=== PATIENT | female | born 1945 | race Caucasian/White ===

== ENCOUNTER 2016-05-18 12:37 | Emergency (ER) | payer MEDICARE, OTHER ==
[~2016-05-18] VITALS: Ht 157.5 cm; Wt 54.7 kg
[~2016-05-18 12:37] MED LIST: AMIT25TA20 PO; ESTR.3 PO; LYRI50CA2 PO; PERC5TAB12 PO; PREG75 PO; VAGI10TA VA; XANA0.5T PO
[2016-05-18] MEDS ORDERED: ASPIRIN 81 MG CHEW TAB PO ONE (13:15)
[2016-05-18] MEDS ORDERED: SODIUM CHLORIDE 0.9% FLUSH 5 ML FLUSH IVF PRN (13:15)
[2016-05-18 13:20] VITALS: RESP 16; O2SAT 98
--- NOTE | 2016-05-18 13:24 | PD ---
HPI Chief Complaint: Cardiac Complaint Time Seen by Provider: 12:59 Travel History International Travel<30 days: No Contact w/Intl Traveler<30days: No History of Present Illness HPI This is a 71 Year-old female who presents to the emergency department with upper back pain that's been going on for weeks, intermittent, worse with movement and laying flat, improved with sitting up. She follows with Dr. Cox and saw him a week ago regarding her pain because intermittently it goes to her right chest. He recommended a stress test and an echo. They're scheduled for next week. Today one hour prior to arrival in the emergency department the patient develops severe right sided back pain and heaviness in her chest while she was shopping. This is never happened to her before. She denies any associated shortness of breath, nausea or diaphoresis. It is since resolved but she decided to come to the emergency department to be evaluated. PFSH Past Medical History Cancer: No Cardiovascular Problems: Yes (PVC'S) Chest Pain: No Diabetes: No Diminished Hearing: No Gastrointestinal Disorders: No Glaucoma: No Hepatitis: No Hiatal Hernia: No Hypertension: Yes Integumentary: No Immunizations Current: Yes Thyroid Disease: No Past Surgical History Appendectomy: Yes Hysterectomy: Yes Thoracic Surgery: No Social History Alcohol Use: Yes (SOCIAL) Tobacco Use: No Substance Use: No Allergies-Medications (Allergen,Severity, Reaction): Coded Allergies: Latex (Verified Allergy, Severe, SKIN IRRITATION, 05/18/16) Penicillin (Verified Allergy, Severe, Rash, 05/18/16) Reported Meds & Prescriptions Reported Meds & Active Scripts Active Reported Premarin (Estrogens Conjugated) 0.3 Mg Tab 0.3 Mg PO DAILY Amitriptyline (Amitriptyline HCl) 50 Mg Tab 50 Mg PO HS Lyrica (Pregabalin) 75 Mg Cap 75 Mg PO HS Vagifem Vaginal (Estradiol Vaginal) 10 Mcg Vagtab 10 Mcg VAGINAL 2XWEEK Review of Systems Except as stated in HPI: all other systems reviewed are Neg Physical Exam Narrative GENERAL:Well appearing, no acute distress SKIN: Warm and dry. HEAD: Atraumatic. Normocephalic. EYES: Pupils equal and round. No injection or drainage. ENT: Moist mucous membranes NECK: Trachea midline. CARDIOVASCULAR: Regular rate and rhythm. No murmur appreciated. RESPIRATORY: Clear to auscultation. Breath sounds equal bilaterally. GASTROINTESTINAL: Abdomen soft, non-tender, nondistended. MUSCULOSKELETAL: No obvious deformities. NEUROLOGICAL: Awake and alert. No obvious cranial nerve deficits. Moving all extremities. PSYCHIATRIC: Appropriate mood and affect; insight and judgment normal. Data Data Last Documented VS Vital Signs Date Time Temp Pulse Resp B/P Pulse Ox O2 Delivery O2 Flow Rate FiO2 05/18/16 13:39 97.8 82 16 158/75 98 05/18/16 13:32 Room Air Orders Electrocardiogram (05/18/16 13:13) Complete Blood Count With Diff (05/18/16 13:13) Comprehensive Metabolic Panel (05/18/16 13:13) Troponin I (05/18/16 13:13) Ecg Monitoring (05/18/16 13:13) Bilateral Bp Monitoring (05/18/16 13:13) Iv Access Insert/Monitor (05/18/16 13:13) Oximetry (05/18/16 13:13) Oxygen Administration (05/18/16 13:13) Aspirin Chew (Aspirin Chew) (05/18/16 13:15) Sodium Chloride 0.9% Flush (Ns Flush) (05/18/16 13:15) Labs Laboratory Tests Test 05/18/16 13:20 White Blood Count 6.0 TH/MM3 Red Blood Count 4.54 MIL/MM3 Hemoglobin 13.9 GM/DL Hematocrit 40.4 % Mean Corpuscular Volume 88.9 FL Mean Corpuscular Hemoglobin 30.6 PG Mean Corpuscular Hemoglobin 34.4 % Concent Red Cell Distribution Width 12.8 % Platelet Count 203 TH/MM3 Mean Platelet Volume 8.3 FL Neutrophils (%) (Auto) 64.7 % Lymphocytes (%) (Auto) 22.8 % Monocytes (%) (Auto) 8.8 % Eosinophils (%) (Auto) 2.6 % Basophils (%) (Auto) 1.1 % Neutrophils # (Auto) 3.8 TH/MM3 Lymphocytes # (Auto) 1.4 TH/MM3 Monocytes # (Auto) 0.5 TH/MM3 Eosinophils # (Auto) 0.2 TH/MM3 Basophils # (Auto) 0.1 TH/MM3 CBC Comment DIFF FINAL Differential Comment Sodium Level 141 MEQ/L Potassium Level 4.0 MEQ/L Chloride Level 105 MEQ/L Carbon Dioxide Level 26.5 MEQ/L Anion Gap 10 MEQ/L Blood Urea Nitrogen 15 MG/DL Creatinine 0.70 MG/DL Estimat Glomerular Filtration 82 ML/MIN Rate Random Glucose 80 MG/DL Calcium Level 8.7 MG/DL Total Bilirubin 0.4 MG/DL Aspartate Amino Transf 25 U/L (AST/SGOT) Alanine Aminotransferase 26 U/L (ALT/SGPT) Alkaline Phosphatase 65 U/L Troponin I LESS THAN 0.02 NG/ML Total Protein 7.0 GM/DL Albumin 3.6 GM/DL MDM Medical Decision Making Medical Screen Exam Complete: Yes Emergency Medical Condition: Yes Interpretation(s) Afebrile, no tachycardia, hypertensive No leukocytosis Electrolytes within normal limits Troponin normal EKG: Normal sinus rhythm with no ST changes Differential Diagnosis Acute coronary syndrome, costochondritis, musculoskeletal pain, pericarditis Narrative Course This is a 71-year-old female who presents to the emergency department with back discomfort that's been going on intermittently for several weeks but was worse today. She's been seeing Dr. Cox and has an outpatient stress test and an echo already ordered. EKG was performed and was reassuring. Patient was given aspirin on arrival. Labs were obtained which demonstrated normal troponin. Patient is quite healthy and has a heart score of 3. This places her in a low risk category for adverse event in the next 2 weeks. I did discuss with her that this risk is about 1-2%. I offered her admission for serial cardiac enzymes and stress test, however she is comfortable going home and following up with Dr. Cox as an outpatient which I think is reasonable. Patient was discharged home. She was instructed that if her symptoms worsen she should return to the emergency room. Diagnosis Primary Impression: Back pain Qualified Code: M54.6 - Chronic right-sided thoracic back pain Patient Instructions: General Instructions Additional Instructions: If you develop severe chest pain, shortness of breath, sweating, lightheadedness , dizziness or difficulty breathing return to the emergency department immediately. Followup as scheduled with Dr. Cox without fail. Med/Other Pt SpecificInfo: No Change to Meds Disposition: 01 DISCHARGE HOME Condition: Stable Rhiannon Araujo MD May 18, 2016 13:24
[2016-05-18 13:29] LABS: AUTOMATED NEUTROPHIL # 3.8 TH/MM3 (1.8-7.7); BASOPHIL # 0.1 TH/MM3 (0-0.2); BASOPHIL % 1.1 % (0.0-2.0); EOSINOPHIL # 0.2 TH/MM3 (0-0.4); EOSINOPHIL % 2.6 % (0.0-4.0); HEMATOCRIT 40.4 % (35.0-46.0); HEMO FLAGS DIFF FINAL; LYMPH % 22.8 % (9.0-44.0); LYMPHOCYTE # 1.4 TH/MM3 (1.0-4.8); MEAN CELL VOLUME 88.9 FL (80.0-100.0); MEAN CORPUSCULAR HEMOGLOBIN 30.6 PG (27.0-34.0); MEAN CORPUSCULAR HGB CONC 34.4 % (32.0-36.0); MONO % 8.8 % (0.0-8.0); NEUT % 64.7 % (16.0-70.0); PLATELET COUNT 203 TH/MM3 (150-450); RED BLOOD COUNT 4.54 MIL/MM3 (4.00-5.30); RED CELL DISTRIBUTION WIDTH 12.8 % (11.6-17.2)
[2016-05-18] MEDS ORDERED: LYRI75CA PO (13:30)
[2016-05-18] MEDS ORDERED: ESTR.3 PO (13:30)
[2016-05-18] MEDS ORDERED: VAGI10TA VAGINAL (13:30)
[2016-05-18] MEDS ORDERED: AMIT50TA3 PO (13:30)
[2016-05-18 13:38] VITALS: BP_SYST 131; BP_SYST 133; BP_DIAS 73; BP_DIAS 83
[2016-05-18 13:39] VITALS: BP 158/75; PULSE 82; RESP 16; TEMP 97.8; O2SAT 98
[2016-05-18 13:42] LABS: CHLORIDE 105 MEQ/L (98-107); SODIUM (NA) 141 MEQ/L (136-145)
[2016-05-18 13:46] LABS: ANION GAP 10 MEQ/L (5-15); BICARBONATE 26.5 MEQ/L (21.0-32.0); BLOOD UREA NITROGEN 15 MG/DL (7-18)
[2016-05-18 13:49] LABS: ALT (GPT) 26 U/L (10-53); AST (GOT) 25 U/L (15-37); GLOMERULAR FILTRATION RATE 82 ML/MIN (>89)
[2016-05-18 13:50] LABS: TOTAL BILIRUBIN ADULT 0.4 MG/DL (0.2-1.0)
[2016-05-18 13:51] LABS: ALKALINE PHOSPHATASE 65 U/L (45-117)
[2016-05-18 14:25] VITALS: BP 128/66
--- NOTE | 2016-05-19 11:33 | EKG ---
Date Performed: 05/18/2016 Time Performed: 12:45:36 PTAGE: 71 years EKG: Sinus rhythm Normal ECG NO PREVIOUS TRACING DOCTOR: Vega Mahtias Interpretating Date/Time 05/19/2016 11:32:22
== END 2016-05-18 14:26 | disposition home or self-care (01) ==
LOC: PHED 12:37
DX: M54.9 Dorsalgia, unspecified (principal); I10 Essential (primary) hypertension
CPT/HCPCS: 80053; 84484; 85025; 93005